=== PATIENT | female | born 1990 | race Caucasian/White ===

== ENCOUNTER 2016-10-14 12:31 | Observation (INO) | payer OTHER, MEDICAID ==
[~2016-10-14] VITALS: Ht 154.9 cm; Wt 75.5 kg
[2016-10-14 12:42] VITALS: BP 117/88; PULSE 120; RESP 16; TEMP 99.1; O2SAT 96
--- NOTE | 2016-10-14 12:51 | PD ---
HPI . flulike symptoms for 2 days Chief Complaint: Cold / Flu Symptoms Time Seen by Provider: 12:50 Travel History International Travel<30 days: No Contact w/Intl Traveler<30days: No Traveled to known affect area: No History of Present Illness HPI 25-year-old feel no significant past medical history here with complaints of fever, headache and sore throat as well as body aches for 2 days. Patient said all of a sudden yesterday she started to feel very ill with flulike symptoms. Today her symptoms have progressed and she is complaining of fever and mainly sore throat. She is also complaining of body aches all over her body ranging down from her back to her lower extremities. She also reports a rash that she' s had for over one week. She denies any new hygiene products. She denies any pruritus or exposure to new medications. She scheduled appointment with her primary care provider but cannot be seen for quite some time. She decided to come to the emergency department for further evaluation. In the ED she was found to have tachycardia. She denies any photophobia, neck stiffness,cp, nausea, vomiting, diaphoresis, shortness of breath or abdominal pain. PFSH Past Medical History ?: Not LMP: 2 weeks ago Social History Tobacco Use: No Allergies-Medications (Allergen,Severity, Reaction): Coded Allergies: No Known Allergies (Unverified , 10/14/16) Reported Meds & Prescriptions Reported Meds & Active Scripts Active No Active Prescriptions or Reported Medications Review of Systems General / Constitutional: Positive: Fever, Chills, Other (body aches) Eyes: No: Visual changes HENT: No: Headaches Cardiovascular: No: Chest Pain or Discomfort Respiratory: No: Shortness of Breath Gastrointestinal: No: Abdominal Pain Genitourinary: No: Dysuria Musculoskeletal: No: Pain Skin: Positive Rash, No Itching Neurologic: No: Weakness Psychiatric: No: Depression Endocrine: No: Polydipsia Hematologic/Lymphatic: No: Easy Bruising Physical Exam Narrative GENERAL: AAO x 3, no acute distress, Well-nourished, well-developed patient. SKIN: Warm and dry. No visible rashes or bruising. Macular rash dispersed over the legs and abdomen no visible petechiae or purpura. HEAD: Normocephalic and atraumatic. EYES: No scleral icterus. No injection or drainage. ENT: No nasal drainage noted. Mucous membranes pink. Airway patent. Mild posterior pharynx erythema. Tonsils are edematous, no airway obstruction or peritonsillar abscess. No exudates. NECK: Supple, trachea midline. No JVD. Cervical chain lymphadenopathy present CARDIOVASCULAR: Regular rate and rhythm without murmurs, gallops, or rubs. RESPIRATORY: Breath sounds equal bilaterally. No accessory muscle use. No rhonchi or rales. Clear bilaterally. GASTROINTESTINAL: Abdomen soft, non-tender, nondistended. EXTREMITIES: No cyanosis or edema. BACK: Nontender without obvious deformity. No CVA tenderness. PSYCH: AAO x 3, normal affect. Data Data Last Documented VS Vital Signs Date Time Temp Pulse Resp B/P Pulse Ox O2 Delivery O2 Flow Rate FiO2 10/14/16 14:25 120 18 125/78 99 Room Air 10/14/16 12:42 99.1 Orders Influenzae A/B Antigen (10/14/16 12:57) Complete Blood Count With Diff (10/14/16 12:57) Comprehensive Metabolic Panel (10/14/16 12:57) Electrocardiogram (10/14/16 ) Iv Access Insert/Monitor (10/14/16 12:57) Sodium Chlor 0.9% 1000 Ml Inj (Ns 1000 M (10/14/16 13:00) Urinalysis - C+S If Indicated (10/14/16 14:08) Ketorolac Inj (Toradol Inj) (10/14/16 14:15) Dexamethasone Inj (Decadron Inj) (10/14/16 14:15) Ct Pulmonary Angiogram (10/14/16 ) Sodium Chlor 0.9% 1000 Ml Inj (Ns 1000 M (10/14/16 15:00) Thyroid Stimulating Hormone (10/14/16 13:10) Urine Culture (10/14/16 14:25) Iohexol 350 Inj (Omnipaque 350 Inj) (10/14/16 15:26) Admit Order (Ed Use Only) (10/14/16 16:17) Labs Laboratory Tests Test 10/14/16 10/14/16 13:10 14:25 White Blood Count 8.7 TH/MM3 Red Blood Count 4.53 MIL/MM3 Hemoglobin 13.3 GM/DL Hematocrit 38.6 % Mean Corpuscular Volume 85.4 FL Mean Corpuscular Hemoglobin 29.5 PG Mean Corpuscular Hemoglobin 34.5 % Concent Red Cell Distribution Width 12.0 % Platelet Count 236 TH/MM3 Mean Platelet Volume 8.5 FL Neutrophils (%) (Auto) 79.3 % Lymphocytes (%) (Auto) 8.5 % Monocytes (%) (Auto) 8.0 % Eosinophils (%) (Auto) 0.7 % Basophils (%) (Auto) 3.5 % Neutrophils # (Auto) 6.9 TH/MM3 Lymphocytes # (Auto) 0.7 TH/MM3 Monocytes # (Auto) 0.7 TH/MM3 Eosinophils # (Auto) 0.1 TH/MM3 Basophils # (Auto) 0.3 TH/MM3 CBC Comment DIFF FINAL Differential Comment Sodium Level 139 MEQ/L Potassium Level 4.0 MEQ/L Chloride Level 105 MEQ/L Carbon Dioxide Level 27.2 MEQ/L Anion Gap 7 MEQ/L Blood Urea Nitrogen 13 MG/DL Creatinine 0.75 MG/DL Estimat Glomerular Filtration 94 ML/MIN Rate Random Glucose 105 MG/DL Calcium Level 9.1 MG/DL Total Bilirubin 0.5 MG/DL Aspartate Amino Transf 17 U/L (AST/SGOT) Alanine Aminotransferase 30 U/L (ALT/SGPT) Alkaline Phosphatase 73 U/L Total Protein 8.2 GM/DL Albumin 4.0 GM/DL Thyroid Stimulating Hormone 0.498 uIU/ML 3rd Gen Urine Collection Type CLEAN CATCH Urine Color YELLOW Urine Turbidity CLEAR Urine pH 5.5 Urine Specific [place] 1.028 Urine Protein TRACE mg/dL Urine Glucose (UA) NEG mg/dL Urine Ketones NEG mg/dL Urine Occult Blood TRACE Urine Nitrite NEG Urine Bilirubin NEG Urine Leukocyte Esterase NEG Urine RBC 0-3 /hpf Urine WBC 0-2 /hpf Urine Squamous Epithelial 6-8 /hpf Cells Urine Bacteria MANY /hpf Urine Mucus FEW /lpf Microscopic Urinalysis Comment CULTURE INDICATED MDM Medical Decision Making Medical Screen Exam Complete: Yes Emergency Medical Condition: Yes Medical Record Reviewed: Yes Differential Diagnosis influenza, viral syndrome, less likely PNA, Narrative Course 25-year-old feel no significant past medical history here with complaints of fever, headache and sore throat as well as body aches for 2 days. Patient said all of a sudden yesterday she started to feel very ill with flulike symptoms. Today her symptoms have progressed and she is complaining of fever and mainly sore throat. She is also complaining of body aches all over her body ranging down from her back to her lower extremities. She also reports a rash that she' s had for over one week. She denies any new hygiene products. She denies any pruritus or exposure to new medications. She scheduled appointment with her primary care provider but cannot be seen for quite some time. She decided to come to the emergency department for further evaluation. In the ED she was found to have tachycardia. Patient seen and examined. She does have tachycardia on examination and with her symptomatology she seems suspicious for influenza. Labs and influenza ordered. Bolus of normal saline given Case discussed with Dr Pryor, who also examined the patient and recommended UA. Despite bolus heart rate remains elevated. Labs initially negative. UA ordered and appears slightly contaminated. She does not have any symptoms of UTI. Tachycardia still present. Additional bolus provided and CTA ordered. Date/Time Procedure Status Source Growth 10/14/16 13:10 Influenza Types A,B Antigen (BLUE) - Final Complete Nasal Washing NEGATIVE FOR FLU A AND B ANTIGEN.... 10/14/16 14:25 Urine Culture Received Urine Clean Catch Pending Laboratory Tests Test 10/14/16 10/14/16 13:10 14:25 White Blood Count 8.7 TH/MM3 Red Blood Count 4.53 MIL/MM3 Hemoglobin 13.3 GM/DL Hematocrit 38.6 % Mean Corpuscular Volume 85.4 FL Mean Corpuscular Hemoglobin 29.5 PG Mean Corpuscular Hemoglobin 34.5 % Concent Red Cell Distribution Width 12.0 % Platelet Count 236 TH/MM3 Mean Platelet Volume 8.5 FL Neutrophils (%) (Auto) 79.3 % Lymphocytes (%) (Auto) 8.5 % Monocytes (%) (Auto) 8.0 % Eosinophils (%) (Auto) 0.7 % Basophils (%) (Auto) 3.5 % Neutrophils # (Auto) 6.9 TH/MM3 Lymphocytes # (Auto) 0.7 TH/MM3 Monocytes # (Auto) 0.7 TH/MM3 Eosinophils # (Auto) 0.1 TH/MM3 Basophils # (Auto) 0.3 TH/MM3 CBC Comment DIFF FINAL Differential Comment Sodium Level 139 MEQ/L Potassium Level 4.0 MEQ/L Chloride Level 105 MEQ/L Carbon Dioxide Level 27.2 MEQ/L Anion Gap 7 MEQ/L Blood Urea Nitrogen 13 MG/DL Creatinine 0.75 MG/DL Estimat Glomerular Filtration 94 ML/MIN Rate Random Glucose 105 MG/DL Calcium Level 9.1 MG/DL Total Bilirubin 0.5 MG/DL Aspartate Amino Transf 17 U/L (AST/SGOT) Alanine Aminotransferase 30 U/L (ALT/SGPT) Alkaline Phosphatase 73 U/L Total Protein 8.2 GM/DL Albumin 4.0 GM/DL Thyroid Stimulating Hormone 0.498 uIU/ML 3rd Gen Urine Collection Type CLEAN CATCH Urine Color YELLOW Urine Turbidity CLEAR Urine pH 5.5 Urine Specific [place] 1.028 Urine Protein TRACE mg/dL Urine Glucose (UA) NEG mg/dL Urine Ketones NEG mg/dL Urine Occult Blood TRACE Urine Nitrite NEG Urine Bilirubin NEG Urine Leukocyte Esterase NEG Urine RBC 0-3 /hpf Urine WBC 0-2 /hpf Urine Squamous Epithelial 6-8 /hpf Cells Urine Bacteria MANY /hpf Urine Mucus FEW /lpf Microscopic Urinalysis Comment CULTURE INDICATED Last Impressions CT Angiography 10/14/16 0000 Signed Impressions: Service Date/Time: Friday, October 14, 2016 15:10 - CONCLUSION: 1. No evidence of pulmonary embolus. 2. Enlarged main pulmonary artery relative to the aorta suggesting possible pulmonary arterial hypertension. Robbie Kate MD Discussed with Dr. Pryor, with refractory tachycardia, will admit overnight for observation. Discussed with Dr. Pacheco, who accepted the patient. Discussed with patient and family at bedside. Diagnosis Primary Impression: Tachycardia Additional Impression: Viral syndrome Admitting Information Admitting Physician Requests: Admit Scripts No Active Prescriptions or Reported Meds Condition: Stable Trinh Avalos Oct 14, 2016 12:51
[2016-10-14] MEDS ORDERED: SODIUM CHLOR 0.9% 1000 ML INJ 1,000 ML IV ONE ×2 (13:00→15:00)
[2016-10-14 13:20] LABS: AUTOMATED NEUTROPHIL # 6.9 TH/MM3 (1.8-7.7); BASOPHIL # 0.3 TH/MM3 (0-0.2); BASOPHIL % 3.5 % (0.0-2.0); EOSINOPHIL # 0.1 TH/MM3 (0-0.4); EOSINOPHIL % 0.7 % (0.0-4.0); HEMATOCRIT 38.6 % (35.0-46.0); LYMPH % 8.5 % (9.0-44.0); LYMPHOCYTE # 0.7 TH/MM3 (1.0-4.8); MEAN CELL VOLUME 85.4 FL (80.0-100.0); MEAN CORPUSCULAR HEMOGLOBIN 29.5 PG (27.0-34.0); MEAN CORPUSCULAR HGB CONC 34.5 % (32.0-36.0); NEUT % 79.3 % (16.0-70.0); PLATELET COUNT 236 TH/MM3 (150-450); RED BLOOD COUNT 4.53 MIL/MM3 (4.00-5.30); WHITE BLOOD COUNT 8.7 TH/MM3 (4.0-11.0)
[2016-10-14 13:26] LABS: HEMO FLAGS DIFF FINAL
[2016-10-14 13:28] LABS: CHLORIDE 105 MEQ/L (98-107); SODIUM (NA) 139 MEQ/L (136-145)
[2016-10-14 13:32] LABS: ANION GAP 7 MEQ/L (5-15); BICARBONATE 27.2 MEQ/L (21.0-32.0); BLOOD UREA NITROGEN 13 MG/DL (7-18)
[2016-10-14 13:35] LABS: ALT (GPT) 30 U/L (10-53); AST (GOT) 17 U/L (15-37); GLOMERULAR FILTRATION RATE 94 ML/MIN (>89)
[2016-10-14 13:36] LABS: TOTAL BILIRUBIN ADULT 0.5 MG/DL (0.2-1.0)
[2016-10-14 13:38] LABS: ALKALINE PHOSPHATASE 73 U/L (45-117)
[2016-10-14] MEDS ORDERED: KETOROLAC TROMETHAMINE 30 MG/ML (IVP) VIAL IV PUSH ONE (14:15)
[2016-10-14] MEDS ORDERED: DEXAMETHASONE SOD PHOS 4 MG/ML VIAL IV PUSH ONE (14:15)
[2016-10-14 14:25] VITALS: BP 125/78; PULSE 120; RESP 18; O2SAT 99
[2016-10-14 14:44] LABS: BLOOD, URINE TRACE (NEG); GLUCOSE,URINE NEG (NEG); KETONE, URINE NEG (NEG); NITRITE,URINE NEG (NEG); PH, URINE 5.5 (5.0-8.5)
[2016-10-14 14:52] LABS: METHOD OF COLLECTION CLEAN CATCH; URINE COLOR YELLOW (YELLW/STRAW)
[2016-10-14 14:54] LABS: BACTERIA, URINE MANY /hpf; COMMENT (UR) CULTURE INDICATED; CULTURE IF INDICATED CULTURE INDICATED; MUCUS URINE FEW /lpf (OCC)
[2016-10-14 14:56] LABS: RBC, URINE 0-3 /hpf (0-3); WBC, URINE 0-2 /hpf (0-5)
[2016-10-14] MEDS ORDERED: IOHEXOL 350 MG/ML 10 ML VIAL (for RAD DIAG) IV ONE (15:26)
--- NOTE | 2016-10-14 15:53 | RADHPO ---
EXAM DATE/TIME: 10/14/2016 15:10 [place] COMPARISON: No previous studies available for comparison. INDICATIONS : Thrombosis. IV CONTRAST: 75 cc Omnipaque 350 (iohexol) IV RADIATION DOSE: 14.23 CTDIvol (mGy) MEDICAL HISTORY : None SURGICAL HISTORY : None. ENCOUNTER: Initial ACUITY: 2 days PAIN SCALE: 0/10 LOCATION: chest TECHNIQUE: Volumetric scanning of the chest was performed using a pulmonary embolism protocol MIP images were re constructed. Using automated exposure control and adjustment of the mA and/or kV according to patien t size, radiation dose was kept as low as reasonably achievable to obtain optimal diagnostic quality images. FINDINGS: PULMONARY ARTERIES: No filling defects are seen in the pulmonary arteries through the segmental level. The main pulmonary artery is larger than the ascending aorta. Measures 2.8 cm in diameter. This suggests possible pulmo nary arterial hypertension. LUNGS: There is no consolidation or pneumothorax . No concerning pulmonary nodule is visualized. PLEURAE: There is no pleural thickening or pleural effusion. MEDIASTINUM: There is good visualization of the great vessels of the middle mediastinum. No evidence of mediastin al or hilar adenopathy/mass. MUSCULOSKELETAL: Within normal limits for patient age. MISCELLANEOUS: The visualized upper abdominal organs demonstrate no acute abnormality. CONCLUSION: 1. No evidence of pulmonary embolus. 2. Enlarged main pulmonary artery relative to the aorta suggesting possible pulmonary arterial hypert ension. Robbie Kate MD on October 14, 2016 at 15:44 Board Certified Radiologist. This report was verified electronically.
[2016-10-14] MEDS ORDERED: ONDANSETRON HCL 4 MG/2 ML VIAL IVP PRN (16:15)
[2016-10-14] MEDS ORDERED: NALOXONE HCL 0.4 MG/ML AMP IV PRN (16:15)
[2016-10-14] MEDS ORDERED: ACETAMINOPHEN 325 MG TAB PO PRN ×2 (16:15→22:15)
[2016-10-14 16:35] VITALS: BP 119/74; PULSE 111; RESP 16; O2SAT 97
[2016-10-14 16:45] LABS: BARBITURATES, URINE NEG (NEG); COCAINE, URINE NEG (NEG)
[2016-10-14 16:46] LABS: AMPHETAMINE, URINE NEG (NEG)
--- NOTE | 2016-10-14 17:57 | HHI.HP ---
HPI Service [facility] Hospitalists Primary Care Physician No Primary Care Physician Admission Diagnosis REFRACTORY TACHYCARDIA Diagnoses: Chief Complaint: Fever Bodyaches Sore throat Rash Travel History International Travel<30 Days: No Contact w/Intl Traveler <30 Da: No Traveled to Known Affected Are: No History of Present Illness This is a 25-year-old female with past medical history significant for scoliosis status post rodding, asthma, anemia and left renal agenesis presents to [facility] ED with complaints of fever and chills, body aches, weakness, fatigue, sore throat and a rash. Patient states that she first developed a rash about a week ago on the legs which is been progressive over the past week and has extended up to include her abdomen. Denies any new soaps lotions or detergents. She denies any itching, burning, blistering or other complaints about the rash other than the fact that its present and getting worse. She states that last night she developed fever and chills. She did not take her temperature. She also had some soreness in the left side of her throat and ear. She reports diffuse body aches and generalized weakness. She has a headache. She denies any cough, SOB, chest pain, palpitations, sputum production, nausea, vomiting, abdominal pain, diarrhea, hematuria, dysuria, hematochezia or melena. She reports her son has had a mild cough. In the ED, she is tachycardiac. Her white count is normal but she does have a left shift. She has a low grade temp of 99.0. CMP is unremarkable. UA is slightly suggestive of a UTI but does not appear to be a clean catch. CTA was obtained which shows no evidence of pulmonary embolus. Review of Systems Except as stated in HPI: all other systems reviewed are Neg (10 point review of systems completed and all pertinent test stated in the history of present illness) Past Family Social History Past Medical History Scoliosis Asthma Left kidney agenesis Anemia Past Surgical History Previous spinal fusion for scoliosis Reported Medications No Active Prescriptions or Reported Medications Allergies: Coded Allergies: No Known Allergies (Unverified , 10/14/16) Active Ordered Medications Current Medications Medications (Trade) Dose Ordered Sig/Erasto Route Start Time Stop Time Status Last Admin (Tylenol) 650 mg Q4H PRN PO 10/14/16 16:15 (Zofran Inj) 4 mg Q6H PRN IVP 10/14/16 16:15 (Narcan Inj) 0.4 mg UNSCH PRN IV 10/14/16 16:15 Family History Family medical history significant for hypertension, diabetes and coronary artery disease in grandparents Mother is alive and healthy Social History Patient denies any tobacco use alcohol use or illicit drug use. Patient is single and lives with her 4-year-old son She currently works as a fingernail sculptor Physical Exam Vital Signs Vital Signs Date Time Temp Pulse Resp B/P Pulse Ox O2 Delivery O2 Flow Rate FiO2 10/14/16 16:35 111 16 119/74 97 Room Air 10/14/16 15:30 16 10/14/16 14:25 120 18 125/78 99 Room Air 10/14/16 12:50 18 96 Room Air 10/14/16 12:42 99.1 120 16 117/88 96 Physical Exam GENERAL: This is a well-nourished, well-developed patient, in no apparent distress. SKIN: Warm and dry. Scattered macular rash over legs, arms and abdomen sparing the upper chest and back. HEAD: Atraumatic. Normocephalic. No temporal or scalp tenderness. EYES: Pupils equal round and reactive. Extraocular motions intact. No scleral icterus. No injection or drainage. ENT: Nose without bleeding, purulent drainage or septal hematoma. MMM. Mild erythema of posterior pharynx. Tonsils are edematous but no exudates appreciated. Uvula midline. Airway patent. NECK: Trachea midline. No JVD or lymphadenopathy. Supple, nontender, no meningeal signs. CARDIOVASCULAR: Tachycardic. No murmurs, gallops, or rubs. RESPIRATORY: Clear to auscultation. Breath sounds equal bilaterally. No wheezes , rales, or rhonchi. GASTROINTESTINAL: Abdomen soft, non-tender, nondistended. No hepato-splenomegaly , or palpable masses. No guarding. MUSCULOSKELETAL: Extremities without clubbing, cyanosis, or edema. No joint tenderness, effusion, or edema noted. No calf tenderness. NEUROLOGICAL: Awake and alert. Able to move all 4 extremities. No focal neurologic findings appreciated. Normal speech. Laboratory Laboratory Tests Test 10/14/16 10/14/16 13:10 14:25 White Blood Count 8.7 Red Blood Count 4.53 Hemoglobin 13.3 Hematocrit 38.6 Mean Corpuscular Volume 85.4 Mean Corpuscular Hemoglobin 29.5 Mean Corpuscular Hemoglobin 34.5 Concent Red Cell Distribution Width 12.0 Platelet Count 236 Mean Platelet Volume 8.5 Neutrophils (%) (Auto) 79.3 Lymphocytes (%) (Auto) 8.5 Monocytes (%) (Auto) 8.0 Eosinophils (%) (Auto) 0.7 Basophils (%) (Auto) 3.5 Neutrophils # (Auto) 6.9 Lymphocytes # (Auto) 0.7 Monocytes # (Auto) 0.7 Eosinophils # (Auto) 0.1 Basophils # (Auto) 0.3 CBC Comment DIFF FINAL Differential Comment Sodium Level 139 Potassium Level 4.0 Chloride Level 105 Carbon Dioxide Level 27.2 Anion Gap 7 Blood Urea Nitrogen 13 Creatinine 0.75 Estimat Glomerular Filtration 94 Rate Random Glucose 105 Calcium Level 9.1 Total Bilirubin 0.5 Aspartate Amino Transf 17 (AST/SGOT) Alanine Aminotransferase 30 (ALT/SGPT) Alkaline Phosphatase 73 Total Protein 8.2 Albumin 4.0 Thyroid Stimulating Hormone 0.498 3rd Gen Beta HCG, Qualitative LESS THAN 1 Urine Opiates Screen NEG Urine Barbiturates Screen NEG Urine Amphetamines Screen NEG Urine Benzodiazepines Screen NEG Urine Cocaine Screen NEG Urine Cannabinoids Screen NEG Urine Collection Type CLEAN CATCH Urine Color YELLOW Urine Turbidity CLEAR Urine pH 5.5 Urine Specific [place] 1.028 Urine Protein TRACE Urine Glucose (UA) NEG Urine Ketones NEG Urine Occult Blood TRACE Urine Nitrite NEG Urine Bilirubin NEG Urine Leukocyte Esterase NEG Urine RBC 0-3 Urine WBC 0-2 Urine Squamous Epithelial 6-8 Cells Urine Bacteria MANY Urine Mucus FEW Microscopic Urinalysis Comment CULTURE INDICATED Date/Time Procedure Status Source Growth 10/14/16 14:25 Urine Culture Received Urine Clean Catch Pending 10/14/16 13:10 Influenza Types A,B Antigen (BLUE) - Final Complete Nasal Washing NEGATIVE FOR FLU A AND B ANTIGEN.... Result Diagram: 10/14/16 1310 10/14/16 1310 Imaging Last [address] Angiography 10/14/16 0000 Signed Impressions: Service Date/Time: Friday, October 14, 2016 15:10 - CONCLUSION: 1. No evidence of pulmonary embolus. 2. Enlarged main pulmonary artery relative to the aorta suggesting possible pulmonary arterial hypertension. Robbie Kate MD Assessment and Plan Assessment and Plan 25-year-old female with past medical history significant for scoliosis status post rodding, asthma, anemia and left renal agenesis presents to [facility] ED with complaints of fever and chills, body aches, weakness, fatigue, sore throat and a rash. Suspected viral illness - Admit to observation - Rapid strep test - Monospot - EBV ordered - Tylenol prn fever or headache - IV antiemetics prn Rash - likely viral exanthem - monitor Tachycardia - Likely related to viral illness - TSH WNL - No evidence of sepsis - temp 99, white count is normal, no identifiable source of infection - CT obtained shows no evidence of PE - Monitor on cardiac telemetry Possible UTI - UA with trace blood, 6-8 squamous epithelial cells, many bacteria. UCX by reflex. - Patient is asymptomatic at this time. Will hold off on starting antibiotics and follow up on culture results. Anemia - by history - H/H WNL DVT prophylaxis - SCD/TONYA hose Discussed with Dr. Rodrigues Attending Statement Patient was discussed with Patricia Oshea PA-C. Agree with above plan. Patricia Oshea Oct 14, 2016 17:57 Mario Rodrigues MD Oct 14, 2016 18:43
[2016-10-14] MEDS ORDERED: RESP: ALBUTEROL 2.5 MG/IPRATROPIUM 0.5 MG NEB (PRN) NEB (18:15)
[2016-10-14 20:00] VITALS: BP 112/78; PULSE 106; PULSE 109; RESP 20; TEMP 98.5; O2SAT 96
[2016-10-14] MEDS: SODIUM CHLOR 0.9% 1000 ML INJ 1,000 ML IV SCH (20:58)
[2016-10-14] MEDS: ACETAMINOPHEN 325 MG TAB PO PRN (22:26)
--- NOTE | 2016-10-14 22:34 | EKG ---
Date Performed: 10/14/2016 Time Performed: 13:11:34 PTAGE: 25 years EKG: Sinus tachycardia Inferior T wave changes may be normal for age Borderline ECG NO PREVIOUS TRACING DOCTOR: Sushant Greene Interpretating Date/Time 10/14/2016 22:34:08
[2016-10-15] VITALS: BP 108/69; PULSE 102; RESP 20; TEMP 98.3; O2SAT 98
[2016-10-15 04:00] VITALS: BP 111/70; PULSE 77; RESP 20; TEMP 97.6; O2SAT 99
[2016-10-15] MEDS: SODIUM CHLOR 0.9% 1000 ML INJ 1,000 ML IV SCH ×2 (06:12→15:00)
[2016-10-15 08:00] VITALS: BP 108/73; PULSE 79; RESP 18; TEMP 95.7; O2SAT 99
[2016-10-15] MEDS ORDERED: INFLUENZA VIRUS VACCINE (QUADRIVALENT) 0.5 ML SYR IM ONE (09:00)
[2016-10-15 12:00] VITALS: BP 122/79; PULSE 103; RESP 19; TEMP 98.6; O2SAT 97
[2016-10-15] MEDS: ACETAMINOPHEN 325 MG TAB PO PRN (13:03)
--- NOTE | 2016-10-15 15:52 | HHI.PR ---
Subjective Remarks Patient seen and examined today with Dr. Rodrigues. No new complaints. Patient feeling much better today, anxious to go home. Afebrile. Denies any nausea, vomiting, chest pain or shortness of breath. Objective Vitals Vital Signs Date Time Temp Pulse Resp B/P Pulse Ox O2 Delivery O2 Flow Rate FiO2 10/15/16 12:00 98.6 103 19 122/79 97 10/15/16 08:00 95.7 79 18 108/73 99 10/15/16 04:00 97.6 77 20 111/70 99 10/15/16 00:00 98.3 102 20 108/69 98 10/14/16 20:00 106 10/14/16 20:00 98.5 109 20 112/78 96 10/14/16 16:35 111 16 119/74 97 Room Air I/O 10/14/16 10/14/16 10/14/16 10/15/16 10/15/16 10/15/16 07:00 15:00 23:00 07:00 15:00 23:00 Intake Total 1000 ml 1480 ml 1153 ml 700 ml Balance 1000 ml 1480 ml 1153 ml 700 ml Intake Oral 480 ml 240 ml IV Total 1000 ml 1000 ml 913 ml 700 ml # Voids 1 2 # Bowel Movements 0 0 Result Diagram: 10/14/16 1310 10/14/16 [address] Angiography 10/14/16 0000 Signed Impressions: Service Date/Time: Friday, October 14, 2016 15:10 - CONCLUSION: 1. No evidence of pulmonary embolus. 2. Enlarged main pulmonary artery relative to the aorta suggesting possible pulmonary arterial hypertension. Robbie Kate MD Urinary Catheter: No Vascular Central Line Catheter: No A/P Assessment and Plan 25-year-old female with past medical history significant for scoliosis status post rodding, asthma, anemia and left renal agenesis presents to [facility] ED with complaints of fever and chills, body aches, weakness, fatigue, sore throat and a rash. Suspected viral illness: Rapid strep test negative, Monospot negative, EBV negative, CTA negative. Afebrile. Rash: Likely viral exanthem. Outpatient follow with PCP if worsens. Tachycardia: Resolved. Labs WNL.TSH WNL. Negative PE, Possible UTI: Asymptomatic. Likely contaminated specimen, continue to follow up cultures. Address if cultures are positive. Anemia: History of. HH WNL. Written by Mario Chauhan, acting as scribe for Dr. Rodrigues on 10/15/16 at 16:04. All or portions of this note were transcribed by scribe Mario Chauhan. I, Dr. Mario Rodrigues personally performed the history, physical exam, and medical decision making; and confirmed the accuracy of the information in the transcribed note. Authenticated by Dr. Mario Rodrigues on 10/15/16 at 16:42. Discharge Planning Discharge home in stable condition Activity: Ad everardo. Diet: Regular diet Medications per medication reconciliation Follow-up primary medical doctor in one week. Mario Chauhan Oct 15, 2016 15:52 Mario Rodrigues MD Oct 15, 2016 16:43
--- NOTE | 2016-10-15 16:06 | HHI.DCPOC ---
Discharge Care Plan Diagnosis: (1) Viral syndrome (2) Tachycardia Goals to Promote Your Health * To prevent worsening of your condition and complications * To maintain your health at the optimal level Directions to Meet Your Goals Take your medications as prescribed Follow your dietary instruction Follow activity as directed Keep your appointments as scheduled Take your immunizations and boosters as scheduled If your symptoms worsen call your PCP, if no PCP go to Urgent Care Center or Emergency Room Smoking is Dangerous to Your Health. Avoid second hand smoke Call the 24-hour hour crisis hotline for domestic abuse at Mario Chauhan Oct 15, 2016 16:06
[2016-10-16 02:08] LABS: EBV VCA IgM Negative (Negative)
== END 2016-10-15 17:00 | disposition home or self-care (01) ==
LOC: PHED 12:31 → PHEDA 16:18 → PH3B 17:54
PROVIDERS: ADMIT Family Medicine; ATTEND Family Medicine
DX: B09 Unspecified viral infection characterized by skin and mucous membrane lesions (principal); R50.9 Fever, unspecified; R51 Headache; J02.9 Acute pharyngitis, unspecified; R21 Rash and other nonspecific skin eruption; R00.0 Tachycardia, unspecified; Q60.0 Renal agenesis, unilateral; M41.9 Scoliosis, unspecified; J45.909 Unspecified asthma, uncomplicated; D64.9 Anemia, unspecified; R53.1 Weakness; Z23 Encounter for immunization
CPT/HCPCS: 71275; 80053; 80307; 81001; 84443; 84703; 85025; 86308; 86664; 86665; 87081; 87086; 87804; 87880; 90471; 90686; 93005; 96361; 96374; 96375; 99285; G0378; J1100; J1885; J7030; Q9967; G0008; Q2038